=== PATIENT | female | born 1960 | race Caucasian/White ===

== ENCOUNTER → 2017-03-07 | Outpatient (REF) | payer MEDICARE, MEDICAID ==
[~2017-03-07] MED LIST: /WARF5TA OR; ACET65TA OR; FOLI1TAB OR; KAYEPOW PO; LEVO25TABR OR; MULTIVIT PO; RENA800T OR; ZEMPLAR IV
[2017-03-07 14:22] LABS: BASO % 0.6 % (0.0-1.0); EOS # 0.1 K/mm3 (0.0-0.50); EOS % 1.7 % (0.0-3.0); LARGE UNSTAINED CELL # 0.1 K/mm3 (0.0-0.4); LARGE UNSTAINED CELL % 1.3 % (0.0-4.0); LYMPH # 1.1 K/mm3 (1.5-4.5); LYMPH % 15.1 % (24.0-44.0); MEAN CORPUSCULAR HEMOGLOBIN 32.4 pg (27.0-33.0); MEAN CORPUSCULAR HGB CONC 32.4 g/dl (32.0-36.5); MEAN CORPUSCULAR VOLUME 100.2 fl (80.0-96.0); MONO # 0.4 K/mm3 (0.0-0.8); MONO % 5.8 % (0.0-5.0); NEUTROPHILS # 5.1 K/mm3 (1.8-7.7); NEUTROPHILS % 75.5 % (36.0-66.0); PLATELET COUNT, AUTOMATED 178 k/mm3 (150-450); RED CELL DISTRIBUTION WIDTH 13.5 % (11.5-14.5); WHITE BLOOD COUNT 6.8 K/mm3 (4.0-10.0)
[2017-03-07 15:09] LABS: ALBUMIN 3.8 GM/DL (3.2-5.2); ALBUMIN/GLOBULIN RATIO 0.97 (1.00-1.93); ALKALINE PHOSPHATASE 261 U/L (45-117); ALT/SGPT 21 U/L (12-78); ANION GAP 10 MEQ/L (8-16); AST/SGOT 16 U/L (15-37); BILIRUBIN,TOTAL 0.4 MG/DL (0.2-1.0); BLOOD UREA NITROGEN 30 MG/DL (7-18); CALCIUM LEVEL 8.5 MG/DL (8.5-10.1); CARBON DIOXIDE LEVEL 28 MEQ/L (21-32); CHLORIDE LEVEL 100 MEQ/L (98-107); CREATININE FOR GFR 6.64 MG/DL (0.55-1.02); GLOMERULAR FILTRATION RATE 6.9 (>51); GLUCOSE, FASTING 82 MG/DL (70-105); POTASSIUM SERUM 4.6 MEQ/L (3.5-5.1); SODIUM LEVEL 138 MEQ/L (136-145); TOTAL PROTEIN 7.7 GM/DL (6.4-8.2)
[2017-03-07 15:36] LABS: ERYTHROCYTE SEDIMENTATION RATE 56 mm/hr (0-30)
[2017-03-07 16:40] LABS: FOLATE 22.4 NG/ML; VITAMIN B12 LEVEL 380 PG/ML
[2017-03-08 11:19] LABS: ALBUMIN 4.13 GM/DL (3.29-5.55); ALBUMIN % 53.6 % (55.8-66.1); GAMMA GLOBULIN % 14.8 % (11.1-18.8)
[2017-03-13 00:06] LABS: VITAMIN E LEVEL 10.8 mg/L (5.3-16.8)
== END ==
LOC: M LABNEURO 12:54
PROVIDERS: ATTEND Psychiatry & Neurology Neurology
DX: G60.9 Hereditary and idiopathic neuropathy, unspecified (principal); Z79.899 Other long term (current) drug therapy

== ENCOUNTER → 2017-11-09 | Outpatient (CLI) | payer MEDICARE, MEDICAID | LOC: M RAD 09:21 | DX: N18.6 End stage renal disease (principal); R22.42 Localized swelling, mass and lump, left lower limb; T82.521A Displacement of surgically created arteriovenous shunt, initial encounter; T85.618 Breakdown (mechanical) of other specified internal prosthetic devices, implants and grafts; Z99.2 Dependence on renal dialysis; Z95.828 Presence of other vascular implants and grafts | CPT/HCPCS: 93926 ==

== ENCOUNTER 2018-01-23 06:25 | Day surgery (SDC) | payer MEDICARE, MEDICAID ==
[~2018-01-23 06:25] MED LIST changes: -/WARF5TA OR; -ACET65TA OR; +ACETAMINOPHEN 325 MG TAB PO; -FOLI1TAB OR; -KAYEPOW PO; -LEVO25TABR OR; -MULTIVIT PO; -RENA800T OR; -ZEMPLAR IV
[2018-01-23] MEDS ORDERED: D5W/0.2% SODIUM CHLORIDE 1,000 ML IV (06:45)
[2018-01-23] MEDS ORDERED: PHENYLEPHRINE HCL 10 % OPHTH. SOL 5ML OD (07:00)
[2018-01-23] MEDS ORDERED: OFLOXACIN 0.3 % (OCUFLOX) OPTH SOL 5ML OD (07:00)
[2018-01-23 07:18] LABS: POTASSIUM SERUM 4.8 MEQ/L (3.5-5.1)
[2018-01-23] MEDS: PHENYLEPHRINE 2.5% OPHTH SOL 2ML OD (07:28)
[2018-01-23] MEDS: LIDOCAINE 3.5 % 1ML OPHTH TOPICAL GEL OU (07:28)
[2018-01-23] MEDS: TROPICAMIDE 1% OPHTH SOLN 2ML OD (07:28)
[2018-01-23] MEDS: CYCLOPENTOLATE 2% OPHTH SOLN 2ML BTL OD (07:28)
[2018-01-23] MEDS: POVIDONE-IODINE 5% OPHTH PREP SOL 30ML As Ordered (08:29)
[2018-01-23] MEDS: TRIAMCINOLONE PRES FR 40 MG/ML 1ML(TRIESENCE)(OR EYE ONLY)(J3300 PER 1MG) As Ordered (08:36)
[2018-01-23] MEDS: MOXIFLOXACIN IN BSS 0.25MG/0.25ML INTRACAMERAL INJ (OR EYE ONLY)(J2280) As Ordered ×2 (08:36→08:49)
[2018-01-23] MEDS: HEALON DUET (HEALON 10MG/ML 0.55ML & HEALON ENDOCOAT 30MG/ML 0.85ML) As Ordered (08:36)
[2018-01-23] MEDS: LIDOCAINE 1% SDV 5 ML VIAL As Ordered (08:36)
[2018-01-23] MEDS: CEFUROXIME 1MG/0.1ML INTRACAMERAL INJ As Ordered (08:36)
[2018-01-23] MEDS: LIDOCAINE 2% W/EPIN INJ 20ML **PRES FREE As Ordered (08:37)
[2018-01-23] MEDS: BSS with VANC/TOB/EPI for EYE CASES IR (08:37)
[2018-01-23] MEDS: ACETYLCHOLINE OPHTH SOLN 1% 2ML (MIOCHOL-E) As Ordered (08:37)
[2018-01-23] MEDS ORDERED: TRIMETHOBENZAMIDE 300 MG CAP PO (09:00)
[2018-01-23] MEDS: AcetaZOLAMIDE 500 MG ER CAP PO (09:00)
[2018-01-23] MEDS ORDERED: fentaNYL 100 MCG/2 ML INJECTION (J3010) As Ordered (10:23)
[2018-01-23] MEDS ORDERED: MIDAZOLAM INJ 2 MG/2 ML VIAL (J2250) As Ordered (10:23)
== END 2018-01-23 09:21 | disposition home or self-care (01) ==
LOC: M SDC 06:25
DX: H26.9 Unspecified cataract (principal); I12.0 Hypertensive chronic kidney disease with stage 5 chronic kidney disease or end stage renal disease; N18.6 End stage renal disease; E21.1 Secondary hyperparathyroidism, not elsewhere classified; E87.5 Hyperkalemia; I48.0 Paroxysmal atrial fibrillation; I25.10 Atherosclerotic heart disease of native coronary artery without angina pectoris; D64.9 Anemia, unspecified; M12.9 Arthropathy, unspecified; R06.83 Snoring; G47.33 Obstructive sleep apnea (adult) (pediatric); R29.898 Other symptoms and signs involving the musculoskeletal system; Z88.0 Allergy status to penicillin; Z88.1 Allergy status to other antibiotic agents; Z88.8 Allergy status to other drugs, medicaments and biological substances; Z91.040 Latex allergy status; Z79.899 Other long term (current) drug therapy; Z79.01 Long term (current) use of anticoagulants; Z99.2 Dependence on renal dialysis; Z78.0 Asymptomatic menopausal state; Z85.030 Personal history of malignant carcinoid tumor of large intestine
CPT/HCPCS: 66984

== ENCOUNTER → 2018-03-13 | Day surgery (SDC) | payer MEDICARE, MEDICAID ==
[~2018-03-13] MED LIST changes: +AcetaZOLAMIDE 500 MG ER CAP As Ordered; +MIDAZOLAM INJ 2 MG/2 ML VIAL (J2250) As Ordered; +PHENYLEPHRINE HCL 10 % OPHTH. SOL 5ML OS; +TRIMETHOBENZAMIDE 300 MG CAP PO; +ePHEDrine SULFATE 25 MG/5 ML(5MG/ML) SYRINGE As Ordered; +fentaNYL 100 MCG/2 ML INJECTION (J3010) As Ordered
[2018-03-13] MEDS: LIDOCAINE 1% SDV 5 ML VIAL As Ordered (06:47)
[2018-03-13] MEDS: MOXIFLOXACIN IN BSS 0.25MG/0.25ML INTRACAMERAL INJ (OR EYE ONLY)(J2280) As Ordered (06:47)
[2018-03-13] MEDS: OFLOXACIN 0.3 % (OCUFLOX) OPTH SOL 5ML OS (07:52)
[2018-03-13] MEDS: TROPICAMIDE 1% OPHTH SOLN 2ML OS (07:52)
[2018-03-13] MEDS: LIDOCAINE 3.5 % 1ML OPHTH TOPICAL GEL OU (07:52)
[2018-03-13] MEDS: CYCLOPENTOLATE 2% OPHTH SOLN 2ML BTL OS (07:52)
[2018-03-13] MEDS: PHENYLEPHRINE 2.5% OPHTH SOL 2ML OS (07:52)
[2018-03-13 08:46] LABS: POTASSIUM SERUM 4.8 MEQ/L (3.5-5.1)
[2018-03-13] MEDS: POVIDONE-IODINE 5% OPHTH PREP SOL 30ML As Ordered (09:02)
[2018-03-13] MEDS: BSS with VANC/TOB/EPI for EYE CASES IR (09:07)
[2018-03-13] MEDS: TRIAMCINOLONE PRES FR 40 MG/ML 1ML(TRIESENCE)(OR EYE ONLY)(J3300 PER 1MG) As Ordered (09:07)
[2018-03-13] MEDS: HEALON DUET (HEALON 10MG/ML 0.55ML & HEALON ENDOCOAT 30MG/ML 0.85ML) As Ordered (09:07)
[2018-03-13] MEDS: CEFUROXIME 1MG/0.1ML INTRACAMERAL INJ As Ordered (09:09)
[2018-03-13] MEDS: AcetaZOLAMIDE 500 MG ER CAP PO (09:39)
== END | disposition home or self-care (01) ==
LOC: M SDC 07:18
DX: H25.9 Unspecified age-related cataract (principal); I48.91 Unspecified atrial fibrillation; E03.9 Hypothyroidism, unspecified; D64.9 Anemia, unspecified; G47.30 Sleep apnea, unspecified; Z91.040 Latex allergy status; Z88.0 Allergy status to penicillin; Z88.8 Allergy status to other drugs, medicaments and biological substances; Z79.02 Long term (current) use of antithrombotics/antiplatelets; Z79.899 Other long term (current) drug therapy
CPT/HCPCS: 66984

== ENCOUNTER → 2018-12-02 | Outpatient (CLI) | payer MEDICARE, MEDICAID ==
[~2018-12-02] MED LIST changes: +/WARF5TA OR; +8 HO650T2 PO; +ACET65TA OR; -ACETAMINOPHEN 325 MG TAB PO; -AcetaZOLAMIDE 500 MG ER CAP As Ordered; +CALC1CAP31 PO; +CINA30TA PO; +DIGI1TAB PO; +ELIQ5TAB PO; +FOLI1TAB OR; +FOLITAB5 PO; +KAYEPOW PO; +LEVO25TABR OR; -MIDAZOLAM INJ 2 MG/2 ML VIAL (J2250) As Ordered; +MULTIVIT PO; -PHENYLEPHRINE HCL 10 % OPHTH. SOL 5ML OS; +PYRI25TA4 PO; +RENA1TAB PO; +RENA800T OR; +RENV2TAB PO; +SENS90TA PO; +SYNT25TA PO; +THIA100TA PO; -TRIMETHOBENZAMIDE 300 MG CAP PO; +VELT1POW3 PO; +VITA50005 PO; +ZEMPLAR IV; -ePHEDrine SULFATE 25 MG/5 ML(5MG/ML) SYRINGE As Ordered; -fentaNYL 100 MCG/2 ML INJECTION (J3010) As Ordered
--- NOTE | 2018-12-02 18:53 | ECHO ---
DATE OF PROCEDURE: 12/02/2018 Date of : 1960 Age: 58 Height: 62 inches Weight: 200 pounds Body surface area: 1.91 meters squared Outpatient. REFERRING PHYSICIAN: GLORIA Adame. INDICATION: Aortic valve disorder (nonrheumatic - aortic stenosis). MEASUREMENTS: 2D measurements: RV: 4.4 cm LV: 4.3 cm Septum: 1.4 cm Posterior wall: 1.4 cm Aortic root: 3.1 cm LA: 4.7 cm LVEF: 65% Doppler measurements: AV: 3.94 meters per second LVOT: 1.0 meters per second Mean AV systolic gradient: 36 mmHg LVOT diameter: 2.0 cm Dimensionless index: 0.29 MV-E: 134, A: 123, E/A ratio: 1.1 Early mitral deceleration time: 215 milliseconds E prime: 6.3, A prime: 7.8, E/E prime ratio: 21.3 Pulmonary capillary wedge pressure: 27 mmHg PV: 0.8 meters per second Pulmonary artery acceleration time: 70 milliseconds RVSP: 69 mmHg IVC: 2.6 cm COMMENTS: Normal sinus rhythm with right bundle branch block. Technically challenging study in light of the patient's body habitus but diagnostically useful information was still obtained. Moderate concentric left ventricle hypertrophy with normal wall motion. Moderately dilated left atrium with impairment of LV diastolic function and elevated mean left atrial pressure. Mildly dilated right heart chambers with a degree of right ventricular free wall hypokinesis and Doppler evidence of severe pulmonary hypertension. At least mildly dilated IVC with reduced respiratory collapse consistent with an elevated central venous pressure. Moderately severe calcific aortic stenosis with mild insufficiency. Moderate mitral annular calcification without inflow tract obstruction and very mild insufficiency. Normal appearing tricuspid valve with moderate insufficiency. No apparent intracardiac mass or pericardial effusion.
== END ==
LOC: M CARPUL 09:19
PROVIDERS: ATTEND Physician Assistant
DX: I35.0 Nonrheumatic aortic (valve) stenosis (principal)